=== PATIENT | female | born 1985 | race Caucasian/White ===

== ENCOUNTER 2022-11-29 17:40 | Observation (INO) ==
[2022-11-29] MEDS ORDERED: metroNIDAZOLE 500 MG/100 ML BAG IV ONE (18:22)
[2022-11-29] MEDS ORDERED: PIPERACILLIN SODIUM/TAZOBACTAM 3.375 GM in DEXTROSE 5% IN WATER 50 ML IV ONE (18:22)
[2022-11-29] MEDS ORDERED: 0.9 % SODIUM CHLORIDE 1,000 ML IV ONE (18:26)
--- NOTE | 2022-11-29 18:32 | Emergency Department Note ---
HPI General Chief complaint: Abdominal Pain Stated complaint: Appendix Time Seen by Provider: 11/29/22 17:43 Source: patient Mode of arrival: ambulatory Limitations: no limitations History of Present Illness HPI Narrative: Narrative: This is a A3 37-year-old female presents complaint of a 5-day history of abdominal pain in the periumbilical region and in both lower quadrants. She has had some nausea but no vomiting her last bowel movement was today it was diarrhea. She denies any fever sweats or chills she denies any provocative or palliative factors. Patient was seen earlier in the outpatient clinic and they did a full work-up including a CT that showed a appendix at 7 mm the upper limit of normal with an fecalith in the appendix itself. She has an elevated white count 11.2 thousand. Patient's past medical history is significant for being anticoagulated for previous PE on Eliquis. She has an inherited factor V Leyden mutation she also has a ICD for tachycardic rhythm. She denies any chance of secondary to an IUD. Related Data Home Medications Medication Instructions Recorded Confirmed fludrocortisone 0.1 mg tablet 0.2 mg PO DAILY 06/03/17 11/29/22 zolpidem 10 mg tablet 10 mg PO HSP PRN Sleep 06/03/17 11/29/22 apixaban 5 mg tablet (Eliquis) 5 mg PO BID 05/16/21 11/29/22 diazepam 2 mg tablet 2 mg PO PRN PRN Insomnia 05/16/21 11/29/22 magnesium 200 mg tablet 200 mg PO DAILY 05/16/21 11/29/22 potassium chloride 20 mEq 20 meq PO BID 05/16/21 11/29/22 tablet,extended release(part/cryst) rizatriptan 10 mg tablet 10 mg PO DAILY PRN Headache 05/16/21 11/29/22 diltiazem HCl 30 mg tablet 30 mg PO TID hypertension 08/23/21 11/29/22 ibuprofen 200 mg tablet 200 mg PO Q6H PRN Pain 08/23/21 11/29/22 metoprolol succinate 50 mg 75 mg PO BID 08/23/21 11/29/22 tablet,extended release 24 hr ivabradine 7.5 mg tablet (Corlanor) 7.5 mg PO BID 11/29/22 11/29/22 omeprazole 20 mg capsule,delayed 20 mg PO QDAY 11/30/22 11/30/22 release Allergies Allergy/AdvReac Type Severity Reaction Status Date / Time adenosine AdvReac Severe supraventricular Verified 11/30/22 18:39 tachycardia diphenhydramine AdvReac Mild Itching Verified 11/30/22 18:39 [From Benadryl] Review of Systems ROS ROS Narrative: Narrative: All systems ED: reviewed and negative except as stated. PFS Narrative Patient History Narrative: Narrative: Medical/Surgical/Family History All Active Problems (Updated 11/30/22 @ 11:32 by Huseyin Dias MD) Hypokalemia (Acute) Acute appendicitis (Acute) Syncope and collapse (Chronic) POTS (postural orthostatic tachycardia syndrome) (Chronic) History of pulmonary embolus (PE) (Chronic) Factor V Leiden (Chronic) Depression (Chronic) Anxiety (Chronic) SOB (shortness of breath) (Chronic) Cough (Chronic) UTI (urinary tract infection) (Chronic) Supraventricular tachycardia (Chronic) UTI (urinary tract infection) (Chronic) Strain of lumbar region (Chronic) Migraine (Chronic) Medical History Anxiety Cough Depression Factor V Leiden History of pulmonary embolus (PE) Migraine POTS (postural orthostatic tachycardia syndrome) SOB (shortness of breath) Strain of lumbar region Supraventricular tachycardia Syncope and collapse UTI (urinary tract infection) Surgical History History of sinus surgery x2 -- 2004 and 2007 History of surgery (11/18/20) Cardiac defibrillator placement History of surgery (~2012) Compound spiral fracture tib/fib, surgeries x4 6350-6639 History of surgery CV EP baseline study, right Family History Other No pertinent family history Social History Smoking Status: Never smoker Alcohol Intake Frequency: 2+ drinks per day Substance Use: does not use Exam Narrative Narrative: Narrative: General alert and oriented x3 no acute distress answers questions cogently. She states her pain is presently 4-5 out of 10. Skin well perfused and hydrated. Abdomen: Positive bowel sounds tender directly mostly in the right lower quadrant as well as the suprapubic area slightly in the left lower quadrant she has no rebound CVA or psoas tenderness. Pulmonary: Clear to auscultation equal bilaterally without rales rhonchi or wheezes. CV: Regular rate and rhythm without murmurs clicks clicks rubs or gallops. General Limitations: no limitations Course Vital Signs Vital signs: Vital Signs Pulse Rate 130 H 11/29/22 17:42 Respiratory Rate 18 11/29/22 17:42 Blood Pressure 138/91 11/29/22 17:42 Pulse Oximetry (%) 96 11/29/22 17:42 Oxygen Delivery Method Room Air 11/29/22 17:42 Temperature 98.1 F 11/30/22 20:20 Pulse Rate 102 H 11/30/22 20:20 Respiratory Rate 16 12/01/22 00:00 Blood Pressure 110/70 11/30/22 20:20 Pulse Oximetry (%) 96 11/30/22 20:20 Oxygen Delivery Method Room Air 11/30/22 20:20 Oxygen Flow Rate (L/min) 0 11/29/22 23:31 MDM MDM Narrative Medical decision making narrative: Narrative: The patient's elevated white count and her exam seems to indicate mariel endicitis with the CT scan confirms. Patient was placed on Zosyn and Flagyl IV and given fentanyl and Zofran for her pain. Dr. Mao was called and we are waiting on his callback right now Sepsis Sepsis Identified: No Lab Data 11/30/22 05:22 11/30/22 05:22 Labs: Lab Results 11/29/22 11/29/22 Range/Units 18:30 18:47 POC PT 14.5 (11.9-14.5) POC INR 1.2 (0.8-1.2) Urine Color Yellow Urine Appearance Hazy A (Clear) Urine pH 5.0 (5.0-9.0) Ur Specific [place] 1.030 (1.000-1.035) Urine Protein Negative (Negative) mg/dL Urine Glucose (UA) Negative (Negative) mg/dL Urine Ketones Negative (Negative) mg/dL Urine Occult Blood 0.20 (Negative) mg/dL Urine Nitrate Negative (Negative) Urine Bilirubin Negative (Negative) mg/dL Urine Urobilinogen Negative mg/dL Ur Leukocyte Esterase 75 A (Negative) /uL Urine RBC 3 (0-3) /hpf Urine WBC 6 H (0-4) /hpf Ur Squamous Epith Cells 9 H (0-4) /hpf Urine Bacteria None (0) /hpf Urine Mucus Few A (None) /hpf Ur Culture Indicated? No Discharge Plan Patient/Caregiver Discharge Instructions Pt seen by BILLING REPRESENTATIVE/PA only: No Clinical Impression: Acute appendicitis Patient Disposition: Still a Patient Discharge Date/Time: 11/29/22 20:53
[2022-11-29 18:50] LABS: POC INR 1.2 (0.8-1.2); POC Pro Time 14.5 (11.9-14.5)
[2022-11-29] MEDS ORDERED: ONDANSETRON 4 MG/2 ML VIAL IV ONE (19:32)
--- NOTE | 2022-11-29 19:45 | Internal Med History&Physical ---
HPI History of Present Illness Patient information: Note initiated : 11/29/22 at 7:33 pm Service Date, if different from initiated Date: [] Patient: Sandhya Nicholson a 37 y/o F admitted on for Appendix. Chief Complaint: [abdominal pain] Chief complaint: abdominal pain History of present illness: Ms. Nicholson is a 37 year old F history of POTS, SVT status post ICD placement, factor V Leyden on Eliquis, depression/anxiety, presenting with 5-day history of abdominal pain. There was no prior similar episode. Over the past 5 days and especially over the past 3 days, she is complaining of 4/10, throat, constant bilateral lower quadrant abdominal pain with associated abdominal fullness. She is complain of nausea but denies any vomiting. She denies any constipations history of mild diarrhea. She still has good appetite. She denies any fever, chills, or diaphoresis. There seems to be no alleviating or exacerbating factors to her symptoms. She presented to her PCP clinic and was told to come to the ED for further evaluations. Vital signs at ED presentations significant for tachycardia with heart rate up to the 130s beats per minute, currently controlled at 90s beats per minute. Labs pending. Outside imaging showing the presence of the acute appendicitis. Admission request is called for acute appendicitis. Constitutional Constitutional: Absent chills, excessive sweating, fatigue, fever(s) or weakness EENT Eyes: Absent blurry vision, change in vision, loss of vision or other visual disturbances Ears: Absent decreased hearing or tinnitus Nose, mouth and throat: Absent abnormal hearing, dry mouth, headache(s), nasal congestion or sore throat Cardiovascular Cardiovascular: Absent chest pain, chest pain at rest, edema, irregular heart rhythm or palpatations Respiratory Respiratory: Absent cough, dyspnea or wheezing Gastrointestinal Gastrointestinal: Present abdominal pain, diarrhea and nausea; Absent constipation or vomiting Musculoskeletal Musculoskeletal: Absent back pain, deformity, limited range of motion, muscle cramps, muscle weakness or numbness Integumentary Integumentary: Absent lesions, rash or wounds Neurological Neurological: Absent focal weakness, headache(s) or numbness Psychiatric Psychiatric: Absent anxiety, depression or hallucinations PFSH PFSH All Active Problems (Updated 11/29/22 @ 18:36 by Balta Amador MD) Acute appendicitis (Acute) Syncope and collapse (Chronic) POTS (postural orthostatic tachycardia syndrome) (Chronic) History of pulmonary embolus (PE) (Chronic) Factor V Leiden (Chronic) Depression (Chronic) Anxiety (Chronic) SOB (shortness of breath) (Chronic) Cough (Chronic) UTI (urinary tract infection) (Chronic) Supraventricular tachycardia (Chronic) UTI (urinary tract infection) (Chronic) Strain of lumbar region (Chronic) Migraine (Chronic) Medical History (Updated 11/29/22 @ 18:36 by Balta Amador MD) Anxiety Cough Depression Factor V Leiden History of pulmonary embolus (PE) Migraine POTS (postural orthostatic tachycardia syndrome) SOB (shortness of breath) Strain of lumbar region Supraventricular tachycardia Syncope and collapse UTI (urinary tract infection) Surgical History (Updated 08/23/21 @ 08:10 by Radha Yeager) History of sinus surgery x2 -- 2004 and 2007 History of surgery (11/18/20) Cardiac defibrillator placement History of surgery (~2012) Compound spiral fracture tib/fib, surgeries x4 [id number] History of surgery CV EP baseline study, right Family History (Updated 08/23/21 @ 08:07 by Radha Yeager) Other No pertinent family history Social History (Updated 08/23/21 @ 08:11 by Radha Yeager) adopted: Yes marital status: occupational status: employed physical activity: weight training smoking status: Never smoker alcohol intake frequency: 2+ drinks per day substance use type: does not use MEDS/ALLERGIES Home Medications and Allergies Home Medications Medication Instructions Recorded Confirmed Type fludrocortisone 0.1 mg tablet 0.2 mg PO DAILY 06/03/17 08/23/21 History zolpidem 10 mg tablet 10 mg PO HSP PRN Sleep 06/03/17 08/23/21 History apixaban 5 mg tablet (Eliquis) 5 mg PO BID 05/16/21 08/23/21 History cefuroxime axetil 250 mg tablet 250 mg PO BID 05/16/21 08/23/21 History cephalexin 750 mg capsule (Keflex) 750 mg PO BID #10 caps 05/16/21 08/23/21 Rx diazepam 2 mg tablet 2 mg PO PRN PRN Insomnia 05/16/21 08/23/21 History escitalopram oxalate 5 mg tablet 5 mg PO DAILY 05/16/21 08/23/21 History magnesium 200 mg tablet 200 mg PO DAILY 05/16/21 08/23/21 History ondansetron HCl 4 mg tablet 4 mg PO Q6 PRN Nausea 05/16/21 08/23/21 History potassium chloride 20 mEq 20 meq PO BID 05/16/21 08/23/21 History tablet,extended release(part/cryst) rizatriptan 10 mg tablet 10 mg PO DAILY PRN Headache 05/16/21 08/23/21 History valacyclovir 1 gram tablet 1 mg PO BID PRN Rash 05/16/21 08/23/21 History Lactobacillus acidophilus PO 08/23/21 08/23/21 History [Probiotic Acidophilus] diltiazem HCl 30 mg tablet 30 mg PO TID PRN 08/23/21 08/23/21 History [id number] C-Mn See Rx Instructions PO QDAY 08/23/21 08/23/21 History capsule (Glucosamine-Chondroitin Complex capsule) guaifenesin 600 mg tablet, 600 mg PO BID 08/23/21 08/23/21 History extended release 12 hr ibuprofen 200 mg tablet 200 mg PO Q6H PRN 08/23/21 08/23/21 History ivabradine 7.5 mg tablet 7.5 mg PO BID 08/23/21 08/23/21 History metoprolol succinate 50 mg 75 mg PO BID 08/23/21 08/23/21 History tablet,extended release 24 hr naproxen sodium 220 mg tablet 220 mg PO ONCE PRN 08/23/21 08/23/21 History Allergies Allergy/AdvReac Type Severity Reaction Status Date / Time adenosine Allergy Unknown Unknown Verified 11/29/22 18:29 diphenhydramine Allergy Itching Verified 11/29/22 18:29 [From Benadl] EXAM Constitutional Vitals: Pulse Resp BP Pulse Ox O2 Del Method 101 H 18 119/56 96 Room Air 11/29/22 19:28 11/29/22 17:42 11/29/22 19:28 11/29/22 19:28 11/29/22 17:42 General appearance: cooperative and no acute distress Head Head exam: Present atraumatic and normocephalic Eye Eye exam: Present EOMI and PERRL ENT ENT exam: Present mucous membranes moist, normal exam and normal external ear exam Neck Neck exam: Present normal inspection; Absent lymphadenopathy, tenderness or thyromegaly Respiratory Respiratory exam: Absent accessory muscle use, respiratory distress or wheezes Cardiovascular Cardiovascular exam: Present normal rate and rhythm; Absent JVD Additional comments: ICD in place GI/Abdominal GI/Abdominal exam: Present normal bowel sounds, soft and tenderness; Absent organomegaly Extremities Exam Extremities exam: Present full ROM, normal capillary refill and normal inspection; Absent tenderness Neurological Exam Neurological exam: Present alert, CN II-XII intact and oriented X3; Absent motor sensory deficit Psychiatric Psychiatric exam: Present normal affect and normal mood; Absent anxious or depressed Skin Skin exam: Present dry and intact DATA Data Completed and Pending Labs: Labs from last 24 hours 11/29/22 11/29/22 18:47 18:30 POC PT 14.5 POC INR 1.2 Urine Color Pending Urine Appearance Pending Urine pH Pending Ur Specific [place] Pending Urine Protein Pending Urine Glucose (UA) Pending Urine Ketones Pending Urine Occult Blood Pending Urine Nitrate Pending Urine Bilirubin Pending Urine Urobilinogen Pending Ur Leukocyte Esterase Pending A/P Assessment and plan (1) Acute appendicitis: Status: Acute (2) POTS (postural orthostatic tachycardia syndrome): Status: Chronic (3) Factor V Leiden: Status: Chronic (4) Supraventricular tachycardia: Status: Chronic (5) Depression: Status: Chronic (6) Anxiety: Status: Chronic Narrative A/P Narrative: Assessment and Plans: 1. Acute appendicitis: Inpatient med surg telemetry Consult general surgeon donovan Cabral. appreciated Meropenem 1gm IV q8hr and Flagyl 500mg IV q8hr for 1-3 days until clinical improvement Then Ciprofloxacin 500mg PO BID and Flagyl 500mg PO q8hr for 7-10 days total including IV antibiotics Hold Eliquis in case if surgeon needed Zofran Tylenol Oxycodone Morphine Clear liquid diet 2. h/o POTS and SVT s/p ICD placement: Metoprolol ER Diltiazem PRN tachycardia Ivabradine 3. Depression/Anxiety: Lexapro 4. h/o Factor V Leiden: Hold Eliquis in case if surgeon needed GI ppx: Not currently indicated DVT ppx: Hold Eliquis in case if surgeon needed Code status: Full Prognosis: guarded Disposition: inpatient med surg tele Time Spent With Patient Time: Total time spent is greater than 50% in coordination of care (as documented) at patient's floor/unit and/or counseling patient: Initial: Total time with patient: 55 - 74 minutes
[2022-11-29 19:51] LABS: Appearance,Urine HAZY (Clear); Bilirubin,Urine Negative (Negative); Color,Urine YELLOW; Culture Indicated,Urine No; Glucose,Urine (UA) Negative (Negative); Ketones,Urine Negative (Negative); Leukocyte Esterase,Urine 75 /uL (Negative); Mucus,Urine FEW /hpf; Nitrate,Urine Negative (Negative); Protein,Urine Negative (Negative); Urine RBC 3 /hpf (0-3); Urine Squamous Epithelial Cell 9 /hpf (0-4); Urine WBC 6 /hpf (0-4); Urobilinogen,Urine Negative
[2022-11-29] MEDS: 0.9 % SODIUM CHLORIDE 1,000 ML IV SCH (20:32)
[2022-11-29] MEDS ORDERED: ACETAMINOPHEN 325 MG TABLET PO PRN (20:48)
[2022-11-29] MEDS ORDERED: morphine 4 MG/ML VIAL IV PRN (20:48)
[2022-11-29] MEDS ORDERED: IPRATROPIUM/ALBUTEROL 3 ML AMPUL.NEB NEB PRN (20:48)
[2022-11-29] MEDS ORDERED: METOPROLOL TARTRATE 5 MG/5 ML VIAL IV PRN (20:48)
--- NOTE | 2022-11-29 21:01 | General Surgery Consult Note ---
HPI Date of Consult Consult Date: 11/29/22 Requesting physician: Balta Amador Primary Care Provider: Negrita Hamm Consult Narrative Chief complaint: RLQ Abdominal Pain Reason for consult: Acute Appendicitis History of present illness: Sandhya is seen in consultation in the ER tonight after a roughly 5 day history of worsening abdominal pain that localized and intensified to the RLQ. She was seen at [facility] where a work up was done including labs and a CT scan which demonstrated findings consistent with mild Appendicitis. She has had some diarrheal stools as well. She has not had prior abdominal surgery. She has had a prior Colonoscopy several years ago that was negative. She has a Factor V Deficiency and subsequent hypercoagulable state. She had a prior Thromboembolic with a PE event roughly 10 years ago in association with an orthopedic procedure as her initial diagnostic event. She is on twice daily Eliquis at this time. Additionally, she has some cardiac issues and has an AICD in place. cc:: CC: Huseyin Dias MD Review of Systems All systems: reviewed and no additional remarkable complaints except as stated Constitutional Additional comments: no weight loss or other chronic symptoms EENT Additional comments: no ENT changes Breasts Additional comments: no issues Cardiovascular Additional comments: see HPI Respiratory Additional comments: some cough but no SOB Gastrointestinal Additional comments: see HPI Genitourinary Additional comments: no changes Integumentary Additional comments: no changes Neurological Additional comments: no changes Psychiatric Additional comments: no changes Hematologic/Lymphatic Additional comments: on Eliquis as state above PFSH PFSH All Active Problems Acute appendicitis (Acute) Syncope and collapse (Chronic) POTS (postural orthostatic tachycardia syndrome) (Chronic) History of pulmonary embolus (PE) (Chronic) Factor V Leiden (Chronic) Depression (Chronic) Anxiety (Chronic) SOB (shortness of breath) (Chronic) Cough (Chronic) UTI (urinary tract infection) (Chronic) Supraventricular tachycardia (Chronic) UTI (urinary tract infection) (Chronic) Strain of lumbar region (Chronic) Migraine (Chronic) Medical History Anxiety Cough Depression Factor V Leiden History of pulmonary embolus (PE) Migraine POTS (postural orthostatic tachycardia syndrome) SOB (shortness of breath) Strain of lumbar region Supraventricular tachycardia Syncope and collapse UTI (urinary tract infection) Surgical History History of sinus surgery x2 -- 2005 and 2007 History of surgery (11/18/20) Cardiac defibrillator placement History of surgery (~2012) Compound spiral fracture tib/fib, surgeries x4 [id number] History of surgery CV EP baseline study, right Family History Other No pertinent family history Social History adopted: Yes marital status: occupational status: employed physical activity: weight training smoking status: Never smoker alcohol intake frequency: 2+ drinks per day substance use type: does not use MEDS/ALLERGIES Home Medications and Allergies Home Medications Medication Instructions Recorded Confirmed Type fludrocortisone 0.1 mg tablet 0.2 mg PO DAILY 06/03/17 11/29/22 History zolpidem 10 mg tablet 10 mg PO HSP PRN Sleep 06/03/17 11/29/22 History apixaban 5 mg tablet (Eliquis) 5 mg PO BID 05/16/21 11/29/22 History cefuroxime axetil 250 mg tablet 250 mg PO BID 05/16/21 08/23/21 History cephalexin 750 mg capsule (Keflex) 750 mg PO BID #10 caps 05/16/21 08/23/21 Rx diazepam 2 mg tablet 2 mg PO PRN PRN Insomnia 05/16/21 11/29/22 History escitalopram oxalate 5 mg tablet 5 mg PO DAILY 05/16/21 08/23/21 History magnesium 200 mg tablet 200 mg PO DAILY 05/16/21 11/29/22 History ondansetron HCl 4 mg tablet 4 mg PO Q6 PRN Nausea 05/16/21 08/23/21 History potassium chloride 20 mEq 20 meq PO BID 05/16/21 11/29/22 History tablet,extended release(part/cryst) rizatriptan 10 mg tablet 10 mg PO DAILY PRN Headache 05/16/21 11/29/22 History valacyclovir 1 gram tablet 1 mg PO BID PRN Rash 05/16/21 08/23/21 History Lactobacillus acidophilus PO 08/23/21 08/23/21 History [Probiotic Acidophilus] diltiazem HCl 30 mg tablet 30 mg PO TID hypertension 08/23/21 11/29/22 History [id number] C-Mn See Rx Instructions PO QDAY 08/23/21 08/23/21 History capsule (Glucosamine-Chondroitin Complex capsule) guaifenesin 600 mg tablet, 600 mg PO BID 08/23/21 08/23/21 History extended release 12 hr ibuprofen 200 mg tablet 200 mg PO Q6H PRN 08/23/21 08/23/21 History ivabradine 7.5 mg tablet 7.5 mg PO BID 08/23/21 08/23/21 History metoprolol succinate 50 mg 75 mg PO BID 08/23/21 11/29/22 History tablet,extended release 24 hr naproxen sodium 220 mg tablet 220 mg PO ONCE PRN 08/23/21 08/23/21 History ivabradine 7.5 mg tablet (Corlanor) 7.5 mg PO BID 11/29/22 11/29/22 History Allergies Allergy/AdvReac Type Severity Reaction Status Date / Time adenosine Allergy Unknown Unknown Verified 11/29/22 18:29 diphenhydramine Allergy Itching Verified 11/29/22 18:29 [From Benadryl] Physical Examination Vital Signs Vital signs: Pulse Resp BP Pulse Ox O2 Del Method 91 H 18 113/74 97 Room Air 11/29/22 20:31 11/29/22 17:42 11/29/22 20:31 11/29/22 20:31 11/29/22 17:42 General physical appearance General physical exam: other (non toxic, fully conversant but in some pain ) Eyes Eye exam: normal ocular movement; negative icteric ENT ENT exam: other (normal facial exam ) Head Head exam IM: Present atraumatic, normal inspection and normocephalic Neck Neck exam: no lymphadenopathy; negative trachea midline Cardiovascular Cardiovascular exam IM: Present normal rate and rhythm Respiratory Respiratory exam: other (normal effort without distress ) Abdomen Abdomen: Present soft (soft and non distended, mild focal tenderness, no mass ) Integumentary Integumentary: Present other (normal appearing intact skin ) Neurologic Neurologic: Present other (grossly intact ) Psychiatric Psychiatric: Present oriented to time, oriented to person and oriented to place Results Labs Labs: Abnormal lab results 11/29/22 Range/Units 18:30 Urine Appearance Hazy A (Clear) Ur Leukocyte Esterase 75 A (Negative) /uL Urine WBC 6 H (0-4) /hpf Ur Squamous Epith Cells 9 H (0-4) /hpf Urine Mucus Few A (None) /hpf All other labs normal. A/P Assessment and plan (1) Acute appendicitis: Assessment and plan: Acute Appendicitis Options and Issues are reviewed and discussed at length including operative and non operative mgmt of Acute Appendicitis. I've explained that I would generally recommend surgery but that in the setting of active Anticoagulation along with her Factor V Deficiency and Cardiac issues, I would recommend IV ABs and plans for non operative management initially while we hold her Eliquis and see if she resolves this non operatively. She may yet require surgery and this is discussed at length as well. IV ABs, Clear Liquids, Pain Control along with observational management Re check labs in the morning Appreciate Hospitalist Assistance and Consultation. Status: Acute Time Spent With Patient Time: Total time spent is greater than 50% in coordination of care (as documented) at patient's floor/unit and/or counseling patient:
[2022-11-29] MEDS ORDERED: DIAZEPAM 2 MG TABLET PO PRN ×2 (21:44)
[2022-11-29] MEDS ORDERED: ZOLPIDEM 5 MG TABLET PO PRN (21:47)
[2022-11-29] MEDS: SENNOSIDES 1 TABLET PO SCH (21:52)
[2022-11-29] MEDS: ONDANSETRON 4 MG/2 ML VIAL IV PRN (22:00)
[2022-11-29] MEDS ORDERED: MEROPENEM 1 GM in 0.9 % SODIUM CHLORIDE 50 ML IV SCH (22:00)
[2022-11-29] MEDS: 0.9 % SODIUM CHLORIDE 10 ML SYRINGE IV SCH (22:00)
[2022-11-29] MEDS ORDERED: ZOLPIDEM 5 MG TABLET ONE (22:04)
[2022-11-29] MEDS: oxyCODONE HCL 5 MG TABLET PO PRN (22:15)
[2022-11-29] MEDS: DOCUSATE SODIUM 100 MG CAPSULE PO SCH (22:15)
[2022-11-29] MEDS ORDERED: cefTRIAXone 2 GM VIAL ONE (23:09)
[2022-11-29] MEDS: cefTRIAXone 2 GM in DEXTROSE 5% IN WATER 50 ML IV ONE ×3 (23:17→23:20)
[2022-11-29] MEDS: cefTRIAXone 2 GM in DEXTROSE 5% IN WATER 50 ML IV SCH (23:19)
[2022-11-30] MEDS ORDERED: ZOLPIDEM 5 MG TABLET PO PRN (00:58)
[2022-11-30] MEDS: metroNIDAZOLE 500 MG/100 ML BAG IV SCH ×3 (03:31→19:03)
[2022-11-30] MEDS: oxyCODONE HCL 5 MG TABLET PO PRN ×2 (03:39→08:46)
[2022-11-30] MEDS: 0.9 % SODIUM CHLORIDE 10 ML SYRINGE IV SCH ×3 (05:30→21:06)
[2022-11-30] MEDS: 0.9 % SODIUM CHLORIDE 1,000 ML IV SCH ×2 (05:34→17:02)
[2022-11-30] MEDS: ONDANSETRON 4 MG/2 ML VIAL IV PRN ×2 (05:40→10:38)
[2022-11-30 06:18] LABS: Basophils # (Auto) 0.05 K/mcL (0.00-0.30); Basophils % (Auto) 0.5 % (0.0-2.0); Eosinophils # (Auto) 0.58 K/mcL (0.00-0.70); Eosinophils % (Auto) 5.5 % (0.0-7.0); Hematocrit 40.1 % (34.1-44.9); Hemoglobin 13.2 g/dL (11.2-15.7); Lymphocytes # (Auto) 2.74 K/mcL (1.50-4.80); Lymphocytes % (Auto) 26.1 % (15.5-49.0); Mean Cell Volume 89.9 fL (80.0-100.0); Mean Corpuscular HGB Conc 32.9 g/dL (31.0-36.0); Mean Platelet Volume 9.4 fL (8.8-12.5); Monocytes # (Auto) 0.74 K/mcL (0.10-0.90); Neutrophils % (Auto) 59.7 % (38.0-78.0); Platelet Count 301 K/mcL (140-440); RBC 4.46 M/mcL (3.59-5.38); Red Cell Distribution Width 12.8 % (11.5-14.5); WBC 10.5 K/mcL (4.5-11.0)
[2022-11-30] MEDS ORDERED: METOCLOPRAMIDE 10 MG/2 ML VIAL IV PRN ×2 (06:24→06:45)
[2022-11-30] MEDS ORDERED: METOCLOPRAMIDE 10 MG/2 ML VIAL ONE (06:28)
[2022-11-30] MEDS ORDERED: IBUPROFEN 200 MG TABLET PO PRN (06:37)
[2022-11-30 06:38] LABS: ALT/SGPT 21 U/L (<40); AST/SGOT 18 U/L (<32); Albumin 3.9 gm/dL (3.2-5.2); Albumin/Globulin Ratio 1.3 (1.0-2.3); Alkaline Phosphatase 56 U/L (39-117); Bilirubin,Total 0.4 mg/dL (0.1-1.0); Blood Urea Nitrogen 8 mg/dL (6-20); Calcium 8.9 mg/dL (8.6-10.4); Carbon Dioxide 24 mmol/L (22-30); Chloride 106 mmol/L (96-108); Globulin 2.9 gm/dL (2.2-3.7); Glomerular Filtration Rate 114; Glucose 96 mg/dL (70-105)
[2022-11-30] MEDS: POTASSIUM CHLORIDE 20 MEQ TABLET PO SCH ×3 (08:47→17:26)
[2022-11-30] MEDS: DOCUSATE SODIUM 100 MG CAPSULE PO SCH ×2 (08:47→21:06)
[2022-11-30] MEDS: DILTIAZEM 30 MG TABLET PO SCH ×3 (08:47→21:05)
[2022-11-30] MEDS: MAGNESIUM OXIDE 400 MG TABLET PO SCH (08:47)
[2022-11-30] MEDS: METOPROLOL SUCCINATE 50 MG TAB.XL.24H PO SCH ×2 (08:47→21:05)
[2022-11-30] MEDS ORDERED: IVABRADINE 7.5 MG PO SCH (09:00)
[2022-11-30] MEDS: Rizatriptan 10 mg tablet PO PRN (09:52)
[2022-11-30] MEDS: FLUDROCORTISONE 0.1 MG TABLET PO SCH (09:53)
--- NOTE | 2022-11-30 10:20 | General Surgery Progress Note ---
SUBJECTIVE Subjective Patient information: Note initiated : 11/30/22 at 10:16 am Service Date, if different from initiated Date: [] Patient: Sandhya Nicholson 37 y/o F admitted on 11/29/22 for Appendix. Chief Complaint: [] Having issues with nausea and vomiting this am, passing gas and likely secondary to oral pain meds Constitutional Vitals: Vital Signs Temp Pulse Resp BP Pulse Ox O2 Del Method O2 Flow Rate 98.3 F 97 H 22 110/74 97 Room Air 0 11/30/22 06:38 11/30/22 03:38 11/30/22 06:38 11/30/22 06:38 11/30/22 03:38 11/30/22 06:38 11/29/22 23:31 Period Temp Pulse Resp BP Sys/Hudson Pulse Ox O2 Del Method O2 Flow Rate Last 24 Hr 98.3 F-99.1 F 90-130 14-22 110-138/56-91 94-97 Room Air-Room Air 0-0 Intake and Output 11/29/22 11/30/22 11/30/22 19:59 03:59 11:59 Intake Total 50 523 1003 Output Total 650 252 Balance 50 -127 751 Weight 225 lb 226 lb 8 oz Intake & Output: Intake & Output 11/29/22 11/30/22 11/30/22 19:59 03:59 11:59 Intake Total 50 523 1003 Output Total 650 252 Balance 50 -127 751 Weight 225 lb 226 lb 8 oz Intake: IV 50 423 1003 Sodium Chloride 0.9% 1,000 ml @ 273 903 100 mls/hr IV .Q10H [facility] Rx#: [id number] Zosyn 3.375 gm In Dextrose 5% 50 in Water 50 ml @ 100 mls/hr IV ONCE ONE Rx#:[id number] Rocephin 2 gm In Dextrose 5% in 50 Water 50 ml @ 100 mls/hr IV Q12H [facility] Rx#:[id number] Oral 100 Output: Void Amount 650 150 # of times incontinent of urine 2 Emesis 100 Other: Urine Appearance Clear Clear Urine Color Dark Yellow Dark Yellow Urine Odor Normal # Voids 1 # Unmeasured Emesis 1 Exam: conversant, non toxic Respiratory Respiratory exam: Present normal respiratory exam Cardiovascular Cardiovascular exam: Present normal rate and rhythm and RRR GI/Abdominal Additional comments: soft and non distended, seems largely non tender to exam Extremities Exam Additional comments: well perfused A/P Assessment and plan (1) Acute appendicitis: Assessment and plan: Early Acute Appendicitis Currently being managed non operatively given anticoagulated state on admission and other issues Continue current IV ABs for now Change to IV pain meds only for now given issues with nausea Status: Acute Time Spent With Patient Time: Total time spent is greater than 50% in coordination of care (as documented) at patient's floor/unit and/or counseling patient:
[2022-11-30] MEDS: cefTRIAXone 2 GM in DEXTROSE 5% IN WATER 50 ML IV SCH ×2 (10:31→21:04)
[2022-11-30] MEDS: HYDROmorphone 0.5 MG/0.5 ML SYRINGE IV PRN ×3 (10:38→17:01)
--- NOTE | 2022-11-30 11:40 | Internal Med Progress Note ---
SUBJECTIVE Subjective Patient information: Note initiated : 11/30/22 at 11:40 am Service Date, if different from initiated Date: [] Patient: Sandhya Nicholson a 37 y/o F admitted on 11/29/22 for Appendix. Chief Complaint: [] Interval history: Ms. Nicholson is a 37 year old F history of POTS, SVT status post ICD placement, factor V Leyden on Eliquis, depression/anxiety, presenting with 5-day history of abdominal pain. There was no prior similar episode. Over the past 5 days and especially over the past 3 days, she is complaining of 4/10, throat, constant bilateral lower quadrant abdominal pain with associated abdominal fullness. She is complain of nausea but denies any vomiting. She denies any constipations history of mild diarrhea. She still has good appetite. She denies any fever, chills, or diaphoresis. There seems to be no alleviating or exacerbating factors to her symptoms. She presented to her PCP clinic and was told to come to the ED for further evaluations. Vital signs at ED presentations significant for tachycardia with heart rate up to the 130s beats per minute, currently controlled at 90s beats per minute. Labs pending. Outside imaging showing the presence of the acute appendicitis. Admission request is called for acute appendicitis. 11/30: Patient is complaining of nausea and vomiting. She is complaining of mild to moderate bilateral lower quadrant abdominal pain. She is commenting of subjective fever and diaphoresis. Culture no growth today. Low-grade fever Tmax 37.3 overnight. WBC 10.5 this morning. Zofran, Reglan, Compazine as needed nausea vomiting. Ibuprofen and Dilaudid as needed pain control. Overall conditions improving. Stay in [facility] today. Constitutional Vitals: Vital Signs Temp Pulse Resp BP Pulse Ox O2 Del Method O2 Flow Rate 36.8 C 86 16 114/72 97 Room Air 0 11/30/22 11:22 11/30/22 11:22 11/30/22 11:22 11/30/22 11:22 11/30/22 11:22 11/30/22 11:22 11/29/22 23:31 Period Temp Pulse Resp BP Sys/Hudson Pulse Ox O2 Del Method O2 Flow Rate Last 24 Hr 36.8 C-37.3 C 86-130 14-22 110-138/56-91 94-97 Room Air-Room Air 0-0 Intake and Output 11/29/22 11/30/22 11/30/22 19:59 03:59 11:59 Intake Total 50 523 1253 Output Total 650 452 Balance 50 -127 801 Weight 102.058 kg 102.739 kg Intake & Output: Intake & Output 11/29/22 11/30/22 11/30/22 19:59 03:59 11:59 Intake Total 50 523 1253 Output Total 650 452 Balance 50 -127 801 Weight 102.058 kg 102.739 kg Intake: IV 50 423 1053 Sodium Chloride 0.9% 1,000 ml @ 273 903 100 mls/hr IV .Q10H [facility] Rx#: [id number] Zosyn 3.375 gm In Dextrose 5% 50 in Water 50 ml @ 100 mls/hr IV ONCE ONE Rx#:[id number] Rocephin 2 gm In Dextrose 5% in 50 50 Water 50 ml @ 100 mls/hr IV Q12H [facility] Rx#:[id number] Oral 100 200 Output: Void Amount 650 150 # of times incontinent of urine 2 Emesis 300 Other: Urine Appearance Clear Clear Urine Color Dark Yellow Dark Yellow Urine Odor Normal # Voids 1 # Unmeasured Emesis 1 Head Head exam: Present atraumatic and normal inspection Eye Eye exam: Present normal appearance ENT ENT exam: Present mucous membranes moist, normal exam and normal external ear exam Neck Neck exam: Present normal inspection Respiratory Respiratory exam: Present normal respiratory exam Cardiovascular Cardiovascular exam: Present normal rate and rhythm GI/Abdominal GI/Abdominal exam: Present normal bowel sounds Back Exam Back exam: Present normal inspection Neurological Exam Neurological exam: Present alert and oriented X3 Skin Skin exam: Present intact and warm OBJ DATA Labs 11/30/22 05:22 11/30/22 05:22 Labs: Abnormal Lab Results 11/30/22 11/30/22 11/29/22 05:22 05:22 18:30 Immature Gran % (Auto) 1.2 H Immature Gran # 0.13 H Potassium 3.2 L Urine Appearance Hazy A Ur Leukocyte Esterase 75 A Urine WBC 6 H Ur Squamous Epith Cells 9 H Urine Mucus Few A Meds: Medications Acetaminophen (Acetaminophen 325 Mg Tablet) 650 mg PO Q6HP PRN; Protocol PRN Reason: Per Pain Protocol/Fever > 101 Albuterol/Ipratropium (Ipratropium/Albuterol 3 Ml Ampul.Neb) 3 ml NEB Q4HRT PRN PRN Reason: Wheezing Diazepam (Diazepam 2 Mg Tablet) 2 mg PO HSP PRN PRN Reason: Insomnia Diltiazem HCl (Diltiazem 30 Mg Tablet) 30 mg PO TID [facility] Last Admin: 11/30/22 08:47 Dose: 30 mg Docusate Sodium (Docusate Sodium 100 Mg Capsule) 100 mg PO BID [facility] Last Admin: 11/30/22 08:47 Dose: Not Given Fludrocortisone Acetate (Fludrocortisone 0.1 Mg Tablet) 0.2 mg PO DAILY [facility] Last Admin: 11/30/22 09:53 Dose: Not Given Hydromorphone HCl (Hydromorphone 0.5 Mg/0.5 Ml Syringe) 0.5 - 1 mg IV Q1HP PRN; Protocol PRN Reason: Per Pain Protocol Last Admin: 11/30/22 10:38 Dose: 0.5 mg Metronidazole (Flagyl) 500 mg in 100 mls @ 100 mls/hr IV Q8H [facility]; Protocol Last Admin: 11/30/22 11:14 Dose: 100 mls/hr Sodium Chloride (Sodium Chloride 0.9%) 1,000 mls @ 100 mls/hr IV .Q10H [facility] Last Admin: 11/30/22 05:34 Dose: 100 mls/hr Ceftriaxone Sodium 2 gm/ (Dextrose) 50 mls @ 100 mls/hr IV Q12H [facility]; Protocol Last Infusion: 11/30/22 11:14 Dose: Infused Ibuprofen (Ibuprofen 200 Mg Tablet) 200 mg PO Q6HP PRN PRN Reason: Pain Last Admin: 11/30/22 08:47 Dose: 200 mg Magnesium Oxide (Magnesium Oxide 400 Mg Tablet) 400 mg PO DAILY [facility] Last Admin: 11/30/22 08:47 Dose: 400 mg Metoclopramide HCl (Metoclopramide 10 Mg/2 Ml Vial) 10 mg IV Q6HP PRN PRN Reason: Nausea/Vomiting Last Admin: 11/30/22 11:14 Dose: 10 mg Metoprolol Succinate (Metoprolol Succinate 50 Mg Tab.Xl.24h) 75 mg PO BID [facility] Last Admin: 11/30/22 08:47 Dose: 75 mg Metoprolol Tartrate (Metoprolol Tartrate 5 Mg/5 Ml Vial) 5 mg IV Q5M PRN PRN Reason: Tachyarrhythmias Omeprazole (Omeprazole 20 Mg Capsule) 20 mg PO ACB [facility] Ondansetron HCl (Ondansetron 4 Mg/2 Ml Vial) 4 mg IV Q6HP PRN PRN Reason: Nausea And Vomiting Last Admin: 11/30/22 10:38 Dose: 4 mg Ivabradine 7.5 Mg (Tablet) 1 dose PO BIDCC [facility] Last Admin: 11/30/22 09:52 Dose: 1 dose Rizatriptan 10 Mg (Tablet) 10 dose PO DAILYP PRN PRN Reason: Migraine Headache Last Admin: 11/30/22 09:52 Dose: 10 dose Potassium Chloride (Potassium Chloride 20 Meq Tablet) 20 meq PO BIDCC [facility] Last Admin: 11/30/22 08:47 Dose: 20 meq Prochlorperazine (Prochlorperazine 10 Mg/2 Ml Vial) 5 mg IV Q4HP PRN PRN Reason: Nausea And Vomiting Senna (Sennosides 1 Tablet) 2 tab PO HS [facility] Last Admin: 11/29/22 21:52 Dose: Not Given Sodium Chloride (0.9 % Sodium Chloride 10 Ml Syringe) 10 ml IV Q8 [facility] Last Admin: 11/30/22 05:30 Dose: Not Given Zolpidem Tartrate (Zolpidem 5 Mg Tablet) 10 mg PO HSP PRN PRN Reason: Insomnia A/P Assessment and plan (1) Acute appendicitis: Status: Acute (2) POTS (postural orthostatic tachycardia syndrome): Status: Chronic (3) Factor V Leiden: Status: Chronic (4) Supraventricular tachycardia: Status: Chronic (5) Depression: Status: Chronic (6) Anxiety: Status: Chronic (7) Hypokalemia: Status: Acute Narrative A/P Narrative: Assessment and Plans: 1. Acute appendicitis: Inpatient med surg Consult general surgeon donovan Cabral. appreciated Rocephin 2gm IV daily and Flagyl 500mg IV q8hr for 1-3 days until clinical improvement Then Ciprofloxacin 500mg PO BID and Flagyl 500mg PO q8hr for 7-10 days total including IV antibiotics Hold Eliquis in case if surgeon needed Zofran Tylenol Oxycodone Morphine Clear liquid diet, advance as tolerated 2. h/o POTS and SVT s/p ICD placement: Metoprolol ER Diltiazem PRN tachycardia Ivabradine 3. Depression/Anxiety: Lexapro 4. h/o Factor V Leiden: Hold Eliquis in case if surgeon needed 5. Hypokalemia: Potassium chloride PO replacement CMP in the morning to trend serum potassium level Also check serum Mg level and replace as needed GI ppx: Not currently indicated DVT ppx: Hold Eliquis in case if surgery is needed Code status: Full Prognosis: Stable Disposition: inpatient med surg Time Spent With Patient Time: Total time spent is greater than 50% in coordination of care (as documented) at patient's floor/unit and/or counseling patient: Subsequent: Total time with patient: 35 - 49 minutes QUALITY VTE Deep Vein Thrombosis/Pulmonary Embolism Present on Admission: No
[2022-11-30] MEDS: PROCHLORPERAZINE 10 MG/2 ML VIAL IV PRN ×2 (13:54→18:12)
[2022-11-30] MEDS ORDERED: POTASSIUM CHLORIDE 20 MEQ TABLET PO SCH (17:30)
[2022-11-30] MEDS ORDERED: POTASSIUM CHLORIDE 20 MEQ in DEXTROSE 5% IN WATER 250 ML IV ONE (17:55)
[2022-11-30] MEDS ORDERED: POTASSIUM CHLORIDE 20 MEQ/10 ML VIAL IV ONE (18:57)
[2022-11-30] MEDS ORDERED: cefTRIAXone 2 GM VIAL ONE (20:55)
[2022-11-30] MEDS: SENNOSIDES 1 TABLET PO SCH (21:06)
[2022-12-01] MEDS: metroNIDAZOLE 500 MG/100 ML BAG IV SCH (03:06)
[2022-12-01] MEDS: PROCHLORPERAZINE 10 MG/2 ML VIAL IV PRN (03:08)
[2022-12-01] MEDS: 0.9 % SODIUM CHLORIDE 1,000 ML IV SCH (03:15)
[2022-12-01] MEDS: 0.9 % SODIUM CHLORIDE 10 ML SYRINGE IV SCH (05:00)
[2022-12-01 06:10] LABS: Basophils # (Auto) 0.04 K/mcL (0.00-0.30); Basophils % (Auto) 0.4 % (0.0-2.0); Eosinophils # (Auto) 0.26 K/mcL (0.00-0.70); Eosinophils % (Auto) 2.4 % (0.0-7.0); Hematocrit 40.7 % (34.1-44.9); Hemoglobin 13.4 g/dL (11.2-15.7); Lymphocytes % (Auto) 25.5 % (15.5-49.0); Mean Cell Volume 89.3 fL (80.0-100.0); Mean Corpuscular HGB Conc 32.9 g/dL (31.0-36.0); Mean Platelet Volume 9.3 fL (8.8-12.5); Monocytes # (Auto) 0.76 K/mcL (0.10-0.90); Monocytes % (Auto) 6.9 % (1.0-12.0); Platelet Count 294 K/mcL (140-440); RBC 4.56 M/mcL (3.59-5.38); Red Cell Distribution Width 12.7 % (11.5-14.5)
[2022-12-01 06:34] LABS: ALT/SGPT 21 U/L (<40); AST/SGOT 20 U/L (<32); Albumin 3.7 gm/dL (3.2-5.2); Albumin/Globulin Ratio 1.3 (1.0-2.3); Alkaline Phosphatase 53 U/L (39-117); Bilirubin,Total 0.4 mg/dL (0.1-1.0); Blood Urea Nitrogen 5 mg/dL (6-20); Calcium 8.7 mg/dL (8.6-10.4); Carbon Dioxide 21 mmol/L (22-30); Chloride 106 mmol/L (96-108); Globulin 2.9 gm/dL (2.2-3.7); Glomerular Filtration Rate 121; Glucose 90 mg/dL (70-105)
[2022-12-01] MEDS ORDERED: OMEPRAZOLE 20 MG CAPSULE PO SCH (07:30)
[2022-12-01] MEDS: POTASSIUM CHLORIDE 20 MEQ TABLET PO SCH (08:06)
[2022-12-01] MEDS: METOPROLOL SUCCINATE 50 MG TAB.XL.24H PO SCH (08:06)
[2022-12-01] MEDS: MAGNESIUM OXIDE 400 MG TABLET PO SCH (08:07)
[2022-12-01] MEDS: DILTIAZEM 30 MG TABLET PO SCH (08:07)
[2022-12-01] MEDS: Rizatriptan 10 mg tablet PO PRN (08:08)
[2022-12-01] MEDS: cefTRIAXone 2 GM in DEXTROSE 5% IN WATER 50 ML IV SCH (08:09)
[2022-12-01] MEDS: DOCUSATE SODIUM 100 MG CAPSULE PO SCH (08:09)
[2022-12-01] MEDS: FLUDROCORTISONE 0.1 MG TABLET PO SCH (08:09)
--- NOTE | 2022-12-01 10:22 | Discharge Summary ---
Discharge Provider Provider IMPORTANT FOLLOW-UP INFORMATION FOR PCP: Patient information: Note initiated : 12/01/22 at 10:20 am Service Date, if different from initiated Date: [] Patient: Sandhya Nicholson 37 y/o F admitted on 11/29/22 for Appendix. Chief Complaint: [] Date of admission: 11/29/22 20:32 Discharge date: 12/01/22 Primary care physician: Negrita Hamm Attending physician on admission: Huseyin Dias Consults: 11/29/22 Consult to Physician [CONS] Stat Comment: Consulting Provider: Huseyin Dias Reason For Exam: Physician to Consult Consult to Physician [CONS] Stat Comment: Consulting Provider: Mich Mao Reason For Exam: Physician to Consult Consult to Physician [CONS] Stat Comment: poi Consulting Provider: Huseyin Dias Reason For Exam: Physician to Consult Attending physician on discharge: Huseyin Bassett [place] COURSE Hospital Course Hospital course: Ms. Nicholson is a 37 year old F history of POTS, SVT status post ICD placement, factor V Leyden on Eliquis, depression/anxiety, presenting with 5-day history of abdominal pain. There was no prior similar episode. Over the past 5 days and especially over the past 3 days, she is complaining of 4/10, throat, constant bilateral lower quadrant abdominal pain with associated abdominal fullness. She is complain of nausea but denies any vomiting. She denies any constipations history of mild diarrhea. She still has good appetite. She denies any fever, chills, or diaphoresis. There seems to be no alleviating or exacerbating factors to her symptoms. She presented to her PCP clinic and was told to come to the ED for further evaluations. Vital signs at ED presentations significant for tachycardia with heart rate up to the 130s beats per minute, currently controlled at 90s beats per minute. Labs pending. Outside imaging showing the presence of the acute appendicitis. Admission request is called for acute appendicitis. 11/30: Patient is complaining of nausea and vomiting. She is complaining of mild to moderate bilateral lower quadrant abdominal pain. She is commenting of subjective fever and diaphoresis. Culture no growth today. Low-grade fever Tmax 37.3 overnight. WBC 10.5 this morning. Zofran, Reglan, Compazine as needed nausea vomiting. Ibuprofen and Dilaudid as needed pain control. Overall conditions improving. Stay in [facility] today. 12/01: Discharged home. Rx sent to pharmacy. Instruction to follow up with Dr. Mao in 2 week given. All questions were answered prior to patient being physically discharged. Discharge diagnosis: Appendicitis. Time Spent with Patient Time attestation: Total time spent providing and/or coordinating discharge services: Time spent: Less than 30 minutes EXAM Constitutional Vitals: Temp Pulse Resp BP Pulse Ox O2 Del Method O2 Flow Rate 36.5 C 98 H 16 116/85 98 Room Air 0 12/01/22 07:18 12/01/22 07:18 12/01/22 07:18 12/01/22 07:18 12/01/22 07:18 12/01/22 07:18 11/29/22 23:31 General appearance: cooperative and no acute distress Head Head exam: Present atraumatic and normocephalic Eye Eye exam: Present EOMI and PERRL ENT ENT exam: Present mucous membranes moist, normal exam and normal external ear exam Neck Neck exam: Present normal inspection; Absent lymphadenopathy, tenderness or thyromegaly Respiratory Respiratory exam: Absent accessory muscle use, respiratory distress or wheezes Cardiovascular Cardiovascular exam: Present normal rate and rhythm; Absent JVD GI/Abdominal GI/Abdominal exam: Present normal bowel sounds and soft; Absent organomegaly or tenderness Extremities Exam Extremities exam: Present full ROM, normal capillary refill and normal inspection; Absent tenderness Neurological Exam Neurological exam: Present alert, CN II-XII intact and oriented X3; Absent motor sensory deficit Psychiatric Psychiatric exam: Present normal affect and normal mood; Absent anxious or depressed Skin Skin exam: Present dry and intact Discharge Data Data Completed and Pending Labs on day of discharge: Labs from last 24 hours 12/01/22 12/01/22 12/01/22 05:07 05:07 05:07 WBC 11.0 RBC 4.56 Hgb 13.4 Hct 40.7 MCV 89.3 MCH 29.4 MCHC 32.9 RDW 12.7 Plt Count 294 MPV 9.3 Immature Gran % (Auto) 0.8 H Neut % (Auto) 64.0 Lymph % (Auto) 25.5 Alpine % (Auto) 6.9 Eos % (Auto) 2.4 Baso % (Auto) 0.4 Lymph # (Auto) 2.80 Alpine # (Auto) 0.76 Eos # (Auto) 0.26 Baso # (Auto) 0.04 Immature Gran # 0.09 H Absolute Neutrophils 7.05 Sodium 139 Potassium 3.8 Chloride 106 Carbon Dioxide 21 L Anion Gap 12.0 BUN 5 L Creatinine 0.5 L GFR Calculation 121 Glucose 90 Calcium 8.7 Magnesium 3.4 H Total Bilirubin 0.4 AST 20 ALT 21 Alkaline Phosphatase 53 Total Protein 6.6 Albumin 3.7 Globulin 2.9 Albumin/Globulin Ratio 1.3 Preliminary micro results at discharge 11/29/22 21:27 Blood Culture - Preliminary Blood 11/29/22 21:16 Blood Culture - Preliminary Blood Discharge Plan Patient/Caregiver Discharge Instructions Activity: increase activity as tolerated Diet: Regular Diet Prescriptions: No Action ibuprofen 200 mg tablet 200 mg PO Q6H PRN (Reason: Pain) zolpidem 10 MG tablet 10 mg PO HSP PRN (Reason: Sleep) fludrocortisone 0.1 MG tablet 0.2 mg PO DAILY rizatriptan 10 mg tablet 10 mg PO DAILY PRN (Reason: Headache) Patient Comments: TAKE ONE TABLET BY MOUTH AT ONSET OF MIGRAINE. IF SYMPTOMS PERSIST A SECOND DOSE MAY BE TAKEN IN 2 HOURS. DO NOT EXCEED 3 DOSES IN A 24 HOUR potassium chloride 20 mEq tablet,ER particles/crystals 20 meq PO BID Patient Comments: TAKE 1 TABLET BY MOUTH TWICE DAILY diazepam 2 mg tablet 2 mg PO PRN PRN (Reason: Insomnia) Patient Comments: TAKE 1 TABLET BY MOUTH TWICE DAILY NEEDED magnesium 200 mg Tablet 200 mg PO DAILY Eliquis 5 mg tablet 5 mg PO BID Patient Comments: TAKE 1 TABLET BY MOUTH TWICE DAILY diltiazem HCl 30 mg tablet 30 mg PO TID Patient Comments: TAKE 1 TABLET BY MOUTH THREE TIMES DAILY NEEDED metoprolol succinate 50 mg tablet extended release 24 hr 75 mg PO BID Patient Comments: TAKE 1 TABLET BY MOUTH TWICE DAILY Corlanor 7.5 mg Tablet 7.5 mg PO BID Rx Instructions: must administer with a meal/food omeprazole 20 mg capsule,delayed release(DR/EC) 20 mg PO QDAY Follow Up Plan Follow up with: Negrita Hamm ARNP [Primary Care Provider] - Patient Disposition: Home, Self-Care Rehab Potential: Good I certify that the patient requires SNF services: No Overall status at discharge: patient is back to baseline Discharge Orders: Discharge Order (Routine); Ordered 12/01/22 Ordered By: Chi Danyelle Pui QUALITY VTE Deep Vein Thrombosis/Pulmonary Embolism Present on Admission: No
--- NOTE | 2022-12-01 11:07 | General Surgery Progress Note ---
SUBJECTIVE Subjective Patient information: Note initiated : 12/01/22 at 11:02 am Service Date, if different from initiated Date: [] Patient: Sandhya Nicholson 37 y/o F admitted on 11/29/22 for Appendix. Chief Complaint: [] feels well this am, tolerating diet, pain has resolved Constitutional Vitals: Vital Signs Temp Pulse Resp BP Pulse Ox O2 Del Method O2 Flow Rate 97.7 F 98 H 16 116/85 98 Room Air 0 12/01/22 07:18 12/01/22 07:18 12/01/22 07:18 12/01/22 07:18 12/01/22 07:18 12/01/22 07:18 11/29/22 23:31 Period Temp Pulse Resp BP Sys/[place] Pulse Ox O2 Del Method O2 Flow Rate Last 24 Hr 97 F-98.9 F 76-102 16-18 110-116/70-85 94-98 Room Air-Room Air Intake and Output 11/30/22 12/01/22 12/01/22 19:59 03:59 11:59 Intake Total 5841 236 7612 Output Total 1050 1050 Balance 600 -640 1150 Weight 227 lb Intake & Output: Intake & Output 11/30/22 12/01/22 12/01/22 19:59 03:59 11:59 Intake Total 0438 356 4550 Output Total 1050 1050 Balance 600 -640 1150 Weight 227 lb Intake: IV 7432 972 0882 Sodium Chloride 0.9% 1,000 ml @ 1000 1000 100 mls/hr IV .Q10H [facility] Rx#: [id number] Potassium Chloride 20 Meq In 260 Dextrose 5% in Water 250 ml @ 130 mls/hr IV ONCE ONE Rx#: [id number] Rocephin 2 gm In Dextrose 5% in 50 50 Water 50 ml @ 100 mls/hr IV Q12H [facility] Rx#:[id number] Oral 550 Output: Void Amount 950 1050 Emesis 100 Other: Urine Appearance Clear Clear Urine Color Yellow Yellow Urine Odor Normal Normal # Emeses 1 Exam: looks well, pleasantly conversant, non toxic A/P Assessment and plan (1) Acute appendicitis: Status: Acute Plan Early mild acute appendicitis treated non operatively due primarily to anticoagulation Agree with discharge home today on oral ABs to include Cipro and Flagyl Clinic follow up with us in Surgery in the next 1-2 weeks Importance of returning immediately to the ER for any recurrence of symptoms is reviewed and discussed at length as well and they have my contact info should any questions or concerns arise Time Spent With Patient Time: Total time spent is greater than 50% in coordination of care (as documented) at patient's floor/unit and/or counseling patient:
--- NOTE | 2022-12-03 08:28 | EKG ---
Formerly [facility] Test Date: 2022-11-29 Pat Name: Sandhya Nicholson Department: ED Room: Gender: Female Cna Ltc: : 1985 Requested By: Balta Amador Order Number: [id number] MD: Alex Brown M.D. Measurements Intervals [place] Rate: 90 P: 43 [place]: 161 QRS: 59 QRSD: 80 T: -1 QT: 372 QTc: 454 Interpretive Statements Sinus rhythm Electronically Signed On 12-03-2022 8:27:54 PDT by Alex Brown M.D. /[id number]
== END 2022-12-01 11:15 | disposition home or self-care (01) ==
LOC: MEDSUR 17:40 → ED 17:40 → MEDSUR 20:53
PROVIDERS: ADMIT Internal Medicine; ATTEND Internal Medicine